=== PATIENT | male | born 1980 | race African-American/Black ===

== ENCOUNTER → 2016-07-27 | Outpatient (CLI) | payer OTHER ==
[~2016-07-27] MED LIST: A-B OTIC EAR DR15 ML OT; ALBUTEROL INHAL17 GM IH; AMOXICILLIN 50500 M1 PO; CORTISPORIN OTI10 M2 OT; NOHOMEMEDICATIONS; PREDNISONE50 MG PO
== END ==
LOC: CAT 09:30
DX: J32.0 Chronic maxillary sinusitis (principal); H57.10 Ocular pain, unspecified eye